=== PATIENT | male | born 1990 | race Caucasian/White ===

== ENCOUNTER 2022-06-22 11:26 | Emergency (ER) | payer OTHER, SELFPAY ==
[2022-06-22 11:39] VITALS: BP 122/83; PULSE 94; RESP 16; TEMP 36.7; O2SAT 98
--- NOTE | 2022-06-22 12:01 | ED.URI ---
HPI - URI/Sore Throat General Chief Complaint: Upper Respiratory Infection Stated Complaint: Sore throat, Ear pain, headache History of Present Illness HPI Narrative: PATIENT PRESENTS REQUESTING A WORK NOTE STATES THAT HE MISSED WORK TODAY DUE TO AN EARACHE. NO FEVER NO COUGH SLIGHT RUNNY NOSE NO DRAINAGE FROM THE EAR. Related Data Allergies Allergy/AdvReac Type Severity Reaction Status Date / Time No Known Allergies Allergy Unverified 08/02/18 19:35 Review of Systems Review of Systems: CONSTITUTIONAL: DENIES CHILLS, OR SWEATS. REPORTS FEVER AND GENERALIZED BODY ACHES EYES: DENIES VISUAL CHANGES, REDNESS, OR DISCHARGE. ENT: DENIES OTALGIA. REPORTS NASAL CONGESTION RUNNY NOSE AND SORE THROAT CARDIOVASCULAR: DENIES CHEST PAIN, PALPITATIONS, OR EDEMA. RESPIRATORY: DENIES DYSPNEA. REPORTS OCCASIONAL COUGH GASTROINTESTINAL: DENIES ABDOMINAL PAIN, NAUSEA, VOMITING, OR DIARRHEA. GENITOURINARY: DENIES DYSURIA OR HEMATURIA. SKIN: DENIES RASH OR ITCHING. MUSCULOSKELETAL: DENIES BACK PAIN, JOINT PAIN, OR MYALGIA. REPORTS GENERALIZED BODY ACHES NEUROLOGIC: DENIES HEADACHE, NUMBNESS, OR WEAKNESS. PSYCHIATRIC: DENIES ANXIETY OR DEPRESSION. PMFSH Comments AT TIME OF SIGNATURE, AGREE WITH NURSING PAST MEDICAL, SURGICAL, SOCIAL AND FAMILY HISTORY. THERE IS NO RELEVANT FAMILY HISTORY PERTINENT TO THE PRESENTING COMPLAINT Exam Narrative: GENERAL: WELL-APPEARING, WELL-NOURISHED, AND IN NO ACUTE DISTRESS. HEAD: NORMOCEPHALIC, ATRAUMATIC. EYES: PERRLA AND EOMI. ENT: NARES CLEAR, NO RHINORRHEA OR EPISTAXIS. MUCOUS MEMBRANES MOIST. NECK: SUPPLE. CHEST: CLEAR TO AUSCULTATION. NO RESPIRATORY DISTRESS. HEART: REGULAR RATE AND RHYTHM. NO MURMUR HEARD. NORMAL PERIPHERAL PULSES. ABDOMEN: SOFT, NONTENDER, NONDISTENDED, NORMAL ACTIVE BOWEL SOUNDS. EXTREMITIES: NORMAL RANGE OF MOTION. NO EDEMA. SKIN: WARM, DRY, NO RASH. NEURO: NO FOCAL DEFICITS. ALERT AND ORIENTED X3. [place] COM[place] SCALE EYE OPENING: SPONTANEOUS 4 [place] COM[place] SCALE MOTOR: OBEYS COMMANDS 6 [place] COM[place] SCALE VERBAL: ORIENTED 5 [place] COM[place] SCALE TOTAL 15 Course Course Level of Care: Express Care Visit Vital Signs Vital signs: Vital Signs Temperature 36.7 C 06/22/22 11:39 Pulse Rate 94 06/22/22 11:39 Respiratory Rate 16 06/22/22 11:39 Blood Pressure 122/83 06/22/22 11:39 Pulse Oximetry 98 06/22/22 11:39 Oxygen Delivery Room Air 06/22/22 11:39 Temperature 36.7 C 06/22/22 11:39 Pulse Rate 94 06/22/22 11:39 Respiratory Rate 16 06/22/22 11:39 Blood Pressure 122/83 06/22/22 11:39 Pulse Oximetry 98 06/22/22 11:39 Oxygen Delivery Room Air 06/22/22 11:39 MDM - URI/Sore Throat Differential Diagnosis Differential diagnosis: Likely upper respiratory infection, croup, otitis media, sinusitis, viral infection, bronchitis, influenza and pharyngitis Discharge Plan Discharge Clinical Impression: Upper respiratory infection Patient Disposition: Home, Self-Care Condition: Stable Instructions: Upper Respiratory Infection (DC) Additional Instructions: TAKE MEDICATIONS PRESCRIBED. RETURN FOR WORSENING SIGNS OR SYMPTOMS RETURN IF FACIAL PAIN INCREASES, FEVER, WORSENING SYMPTOMS, SHORTNESS OF BREATH, CHEST PAIN, PRODUCTIVE COUGH OR DIFFICULTY SWALLOWING) AND AGREES WITH THE PLAN. CONGESTION - FLONASE AM AND PM FOR CHRONIC SINUS CONGESTION OR PROLONGED SYMPTOMS OF SINUSITIS (TAKES SEVERAL DAYS TO WORK). ONE TO THREE TIMES A DAY OF IRRIGATION OF SINUS WITH SALINE SPRAY, OCEAN NASAL SPRAY OR OSWALD POT. FLUIDS. IF YOU DON'T HAVE HYPERTENSION-AFRIN NASAL SPRAY WITH A 3 DAY LIMIT FOR IMMEDIATE RELIEF OF SINUS CONGESTION. FOR RUNNY NOSE: DO OVER THE COUNTER ANTIHISTAMINE (CLARITIN, BENADRYL, ZYRTEC) FOR SNEEZING, RUNNY NOSE. ALLERGIES. SUDAFED OR DECONGESTANT CAN ALSO BE USED, UNLESS YOU HAVE ELEVATED BLOOD PRESSURE, NURSING OR . PINEAPPLE JUICE TO HELP THIN MUCUS P
== END 2022-06-22 12:09 | disposition home or self-care (01) ==
PROVIDERS: Emergency Provider Nurse Practitioner Family; PCP Family Medicine
DX: J06.9 Acute upper respiratory infection, unspecified (principal)
CPT/HCPCS: 99203; G0463

== ENCOUNTER 2023-06-02 12:52 | Emergency (ER) | payer OTHER, SELFPAY ==
[2023-06-02 13:02] VITALS: BP 131/82; PULSE 84; RESP 16; TEMP 36.9; O2SAT 99
--- NOTE | 2023-06-02 14:20 | ED.NAVMDI ---
HPI - Nausea/Vomiting/Diarrhea General Chief complaint: Nausea/Vomiting/Diarrhea Stated complaint: nausea/diarrhea Time Seen by Provider: 06/02/23 14:10 Source: patient, family, RN notes reviewed and old records reviewed Mode of arrival: ambulatory Limitations: no limitations History of Present Illness HPI Narrative: 32-year-old male accompanied presents to Express Care with complaints of nausea vomiting and diarrhea starting at 0200 today. Patient reports that he does have a little cough and some runny nose denies any known fevers. Patient reports that he did go to a birthday democrat at [place] yesterday but no one else in family is ill. Patient has not taken any OTC medications for his symptoms.Patient denies any acute abdominal pain MD elicited complaint: nausea, vomiting, diarrhea and other (runny nose and little cough.) Onset (ago): day(s) (since early am) Description of vomiting: food contents Description of diarrhea: watery Associated nausea: Yes Associated abdominal pain: No Treatment prior to arrival: none Related Data Allergies Allergy/AdvReac Type Severity Reaction Status Date / Time No Known Allergies Allergy Unverified 08/02/18 19:35 Review of Systems Review of Systems: CONSTITUTIONAL: Denies fever, chills, or sweats. ENT:Reports some rhinorrhea, congestion,no sore throat, or otalgia. CARDIOVASCULAR: Denies chest pain, palpitations, or edema. RESPIRATORY: States some cough denies dyspnea. GASTROINTESTINAL: Reports no abdominal pain,positive for nausea, vomiting, diarrhea. GENITOURINARY: Denies dysuria or hematuria. SKIN: Denies rash or itching. MUSCULOSKELETAL: Denies back pain, joint pain, or myalgia. NEUROLOGIC: Denies headache, numbness, or weakness. All systems reviewed & are unremarkable except as noted in HPI and below PMFSH Past Medical History Medical History (Updated 06/03/23 @ 13:54 by Elyssa Granados NP) ADHD (attention deficit hyperactivity disorder) Asthma as child Social History Social History (Updated 06/03/23 @ 13:52 by Elyssa Granados NP) Smoking status: Never smoker Alcohol intake: current Alcohol use details: rare social Substance use type: marijuana Living arrangements: with family Gender identity (if verbalized by the patient): Male Comments At time of signature, agree with nursing past medical, surgical, social and family history. There is no relevant family history pertinent to the presenting complaint Exam Narrative: GENERAL: Well-appearing, well-nourished, and in no acute distress. HEAD: Normocephalic, atraumatic. EYES: PERRLA, conjunctivae clear, and EOMI. ENT: Nares clear. Mucous membranes moist. Oropharynx without edema, erythema, or lesions. Tonsils not enlarged and without exudate. NECK: Supple. No lymphadenopathy CHEST: Speaks in full sentences. No respiratory distress,SAO2 99% on room air. HEART: Regular rate and rhythm. ABDOMEN: Soft, flat, nondistended. No guarding, rebound tenderness, or rigid. No pulsatilla masses. Bowel sounds present in all four quadrants. No organomegaly. Negative Diop?s sign. No periumbilical tenderness. No Supra public tenderness or distension. Good femoral pulses bilaterally. No hernia noted. No scars or surface trauma. No McBurney point tenderness, nausea and vomiting and diarrhea reported. SKIN: Warm, dry, no rash. NEURO:? Alert and oriented x3. PSYCH: Normal mood and affect Course Course Emergency Course: Patient is aware of diagnosis, understands and agrees to treatment plan.? Anticipatory guidance given.? Patient agrees to follow-up as directed and is aware of reasons to seek care at the emergency department. Portions of this record may have been created with voice recognition software Level of Care: Express Care Visit Vital Signs Vital signs: Vital Signs Temperature 36.9 C 06/02/23 13:02 Pulse Rate 84 06/02/23 13:02 Respiratory Rate 16 06/02/23 13:02 Blood Pressur
== END 2023-06-02 14:46 | disposition home or self-care (01) ==
PROVIDERS: Emergency Provider Registered Nurse; PCP Family Medicine
DX: K52.9 Noninfective gastroenteritis and colitis, unspecified (principal); Z20.822 Contact with and (suspected) exposure to COVID-19
CPT/HCPCS: 87426; 87804; 99213; G0463

== ENCOUNTER 2023-07-01 15:17 | Emergency (ER) | payer OTHER, SELFPAY ==
--- NOTE | ~2023-07-01 | XR_ITS ---
EXAMINATION: XR foot RT 2V DATE: 07/01/2023 16:18 INDICATION: Stepped on metal. TECHNIQUE: 4 views of right foot were obtained. COMPARISON: None. FINDINGS: Bone alignment is normal. No fracture. There is mild osteoarthritis of first metatarsophala ngeal joint. IMPRESSION: 1. No radiopaque foreign body. Reviewed, dictated and finalized at location E.
--- NOTE | 2023-07-01 15:29 | ED.LOWEXIN ---
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 Patient reports that it went through his shoe and punctured his right plantar foot with initially a lot of bleeding which has stopped now. He reports concern that he may have piece of metal in foot. Minimal small puncture wound noted distal plantar foot 0.2cm X 0.2cm. MD complaint: foot injury (puncture) Injury: Right: foot (plantar aspect puncture) Type of Injury: puncture wound Place: street/outdoors Severity: mild Severity scale (1-10): 1 Context: other (puncture) Treatments prior to arrival: other (none) Related Data Allergies Allergy/AdvReac Type Severity Reaction Status Date / Time No Known Allergies Allergy Unverified 07/01/23 15:45 Review of Systems Review of Systems: CONSTITUTIONAL: Denies fever, chills, or sweats. CARDIOVASCULAR: Denies chest pain, palpitations, or edema. RESPIRATORY: Denies cough or dyspnea. GASTROINTESTINAL: Denies abdominal pain, nausea, vomiting SKIN: Reports puncture wound to the plantar aspect of his right foot MUSCULOSKELETAL: Denies myalgia. NEUROLOGIC: Denies headache, numbness All systems reviewed & are unremarkable except as noted in HPI and below PMFSH Past Medical History Medical History ADHD (attention deficit hyperactivity disorder) Asthma as child Social History Social History (Updated 06/03/23 @ 13:52 by Elyssa Granados NP) Smoking status: Never smoker Alcohol intake: current Alcohol use details: rare social Substance use type: marijuana Living arrangements: with family Gender identity (if verbalized by the patient): Male Comments At time of signature, agree with nursing past medical, surgical, social and family history. There is no relevant family history pertinent to the presenting complaint Exam Narrative: GENERAL: Well-appearing, well-nourished, and in no acute distress. HEAD: Normocephalic, atraumatic. EYES: PERRLA and EOMI. ENT: Nares clear, no rhinorrhea or epistaxis. Mucous membranes moist. NECK: Supple.no lymphadenopathy CHEST: Clear to auscultation. No respiratory distress. SAO2 98% on room air HEART: Regular rate and rhythm. No murmur heard. Normal peripheral pulses. ABDOMEN: Soft, nontender, nondistended, normal active bowel sounds. EXTREMITIES: Normal range of motion. No edema. SKIN: Warm, dry. Small puncture wound to the distal plantar area of right foot with no present drainage noted.mild tenderness of distal plantar area of foot where puncture noted 0.2cm X 0.2cm wound no bleeding noted. Right foot has strong pedal pulse. Foot soaked in warm water with antibacterial soap NEURO: No focal deficits. Alert and oriented x3. Course Course Emergency Course: Patient is aware of diagnosis, understands and agrees to treatment plan. Anticipatory guidance given. Patient agrees to follow-up as directed and is aware of reasons to seek care at the emergency department. Portions of this record may have been created with voice recognition software Level of Care: Express Care Visit Vital Signs Vital signs: Vital Signs Temperature 36.9 C 07/01/23 15:45 Pulse Rate 67 07/01/23 15:45 Respiratory Rate 18 07/01/23 15:45 Blood Pressure 130/81 07/01/23 15:45 Pulse Oximetry 98 07/01/23 15:45 Temperature 36.9 C 07/01/23 15:45 Pulse Rate 67 07/01/23 15:45 Respiratory Rate 18 07/01/23 15:45 Blood Pressure 130/81 07/01/23 15:45 Pulse Oximetry 98 07/01/23 15:45
[2023-07-01 15:45] VITALS: BP 130/81; PULSE 67; RESP 18; TEMP 36.9; O2SAT 98
== END 2023-07-01 17:35 | disposition home or self-care (01) ==
PROVIDERS: Emergency Provider Registered Nurse; PCP Family Medicine
DX: S91.331A Puncture wound without foreign body, right foot, initial encounter (principal); W22.8XXA Striking against or struck by other objects, initial encounter; Y99.0 Civilian activity done for income or pay; F12.90 Cannabis use, unspecified, uncomplicated
CPT/HCPCS: 73620; 99213; G0463

== ENCOUNTER 2023-10-30 09:23 | Emergency (ER) | payer OTHER, SELFPAY ==
--- NOTE | 2023-10-30 09:28 | ED.GENADULT ---
HPI - General Adult General Chief complaint: Nausea/Vomiting/Diarrhea Stated complaint: nausea/fever Time Seen by Provider: 10/30/23 09:28 Source: patient, RN notes reviewed and old records reviewed Mode of arrival: ambulatory Limitations: no limitations History of Present Illness HPI narrative: 33-year-old male to Express Care for complaint of fever, nausea, nasal congestion, headache that began yesterday. Patient also stating that his ears sound like he's under water. Patient endorses temperature up to 100.8 at home. Patient endorses that significant other has been sick for the past 4-5 days and he believes that he contracted his symptoms from her. Patient denies vomiting, diarrhea constipation, urinary changes flank pain, back pain, dizziness, shortness of breath, chest pain. Patient has attempted to treat at home with [id number] cold and flu medications with some relief. Patient able to tolerate fluids by mouth. Respirations even and nonlabored. Patient able to speak in complete sentences without difficulty. Patient requesting work note. Patient in no acute distress. Related Data Allergies Allergy/AdvReac Type Severity Reaction Status Date / Time No Known Allergies Allergy Unverified 10/30/23 09:29 Review of Systems Review of Systems: All systems reviewed & are unremarkable except as noted in HPI and below Constitutional: Constitutional: Reports as per HPI, Reports fever(s) and Reports headache(s) Eyes: Eyes: Reports no additional eye complaints ENT: Reports as per HPI, Reports otalgia ( sounds like I'm under water ) and Reports nasal congestion Cardiovascular: Cardiovascular: Reports no additional cardiovascular complaints, Denies chest pain and Denies dyspnea Respiratory: Respiratory: Reports no additional respiratory complaints, Denies cough and Denies dyspnea Gastrointestinal: Gastrointestinal: Reports as per HPI and Reports nausea Musculoskeletal: Musculoskeletal: Reports no additional musculoskeletal complaints Neurologic: Reports system reviewed and no additional complaints, except as documented Psychiatric: Psychiatric: Reports no additional psychiatric complaints PMFSH Past Medical History Medical History ADHD (attention deficit hyperactivity disorder) Asthma as child Social History Social History Smoking status: Never smoker Alcohol intake: current Alcohol use details: rare social Substance use type: marijuana Living arrangements: with family Gender identity (if verbalized by the patient): Male Comments At the time of my signature, I reviewed and agree with the nursing past medical, surgical, social, and family history. There is no relevant family history pertinent to the patient complaint. Exam Const: General: cooperative, no acute distress, alert, ill appearing acutely, tired appearing, uncomfortable and well nourished Nutritional Appearance: well nourished Orientation/consciousness: patient oriented x3 Limitations: no limitations HENMT: Head: normal to inspection Ears: external ears normal and TM abnormal erythematous on the right, with fluid behind the TM on the right and with loss of landmarks on the right Face/Nose/Sinus: Normal external nose present, Normal nares present, normal facial exam, No erythema and No edema Face and sinus: normal facial exam, no erythema and no edema Mouth: Yes Normal oral and palatal mucosa present Throat: postnasal drainage Eyes: General: appearance normal, both eyes and all related structures Neck: Neck: normal visual inspection, full ROM and no meningeal signs Lymphatic: no lymphadenopathy noted and no lymphedema noted Chest: Chest palpation & inspection: normal inspection of the chest Resp: Effort & Inspection: normal respiratory effort and able to speak in complete sentences Auscultation: clear to ausculta
[2023-10-30 09:30] VITALS: BP 129/78; PULSE 61; RESP 15; TEMP 36.8; O2SAT 99
== END 2023-10-30 09:55 | disposition home or self-care (01) ==
PROVIDERS: Emergency Provider Nurse Practitioner Family
DX: B34.9 Viral infection, unspecified (principal); H66.91 Otitis media, unspecified, right ear; F12.90 Cannabis use, unspecified, uncomplicated
CPT/HCPCS: 99213; G0463

== ENCOUNTER 2024-02-07 13:22 | Emergency (ER) | payer OTHER, SELFPAY ==
[2024-02-07 13:34] VITALS: BP 147/87; PULSE 70; RESP 20; TEMP 36.8; O2SAT 99
--- NOTE | 2024-02-07 13:35 | ED.DENTAL ---
HPI - Dental/Oral General Chief complaint: Dental/Oral Stated complaint: Toothache History of Present Illness HPI Narrative: Dental HPI NO FEVER. NO JAW SWELLING. NO NECK SWELLING. NO LIMITATION WITH SPEAKING OR SWALLOWING. HAS A HISTORY OF DENTAL CARIES. HAS NOT SEEN A DENTIST RECENTLY. Related Data Allergies Allergy/AdvReac Type Severity Reaction Status Date / Time No Known Allergies Allergy Unverified 10/30/23 09:29 Review of Systems Review of Systems: CONSTITUTIONAL: Denies fever, chills, or sweats. EYES: Denies visual changes, redness, or discharge. ENT: Denies rhinorrhea, congestion, sore throat, or otalgia.CONSTITUTIONAL: Denies fever, chills, or sweats. EYES: Denies visual changes, redness, or discharge. ENT: Denies rhinorrhea, congestion, sore throat, or otalgia. CARDIOVASCULAR: Denies chest pain, palpitations, or edema. RESPIRATORY: Denies cough or dyspnea. GASTROINTESTINAL: Denies abdominal pain, nausea, vomiting, or diarrhea. GENITOURINARY: Denies dysuria or hematuria. SKIN: Denies rash or itching. MUSCULOSKELETAL: Denies back pain, joint pain, or myalgia. NEUROLOGIC: Denies headache, numbness, or weakness. PSYCHIATRIC: Denies anxiety or depression. CARDIOVASCULAR: Denies chest pain, palpitations, or edema. RESPIRATORY: Denies cough or dyspnea. GASTROINTESTINAL: Denies abdominal pain, nausea, vomiting, or diarrhea. GENITOURINARY: Denies dysuria or hematuria. SKIN: Denies rash or itching. MUSCULOSKELETAL: Denies back pain, joint pain, or myalgia. NEUROLOGIC: Denies headache, numbness, or weakness. PSYCHIATRIC: Denies anxiety or depression. ON LICENSE OF [facility] Past Medical History Medical History ADHD (attention deficit hyperactivity disorder) Asthma as child Social History Social History Smoking status: Never smoker Alcohol intake: current Alcohol use details: rare social Substance use type: marijuana Living arrangements: with family Gender identity (if verbalized by the patient): Male Comments At time of signature, agree with nursing past medical, surgical, social and family history. There is no relevant family history pertinent to the presenting complaint Exam Narrative: GENERAL: Well-appearing, well-nourished, and in no acute distress. HEAD: Normocephalic, atraumatic. EYES: PERRLA and EOMI. ENT: Nares clear, no rhinorrhea or epistaxis. Mucous membranes moist. NO LESTER APICAL SWELLING, TOOTH TENDER TO PALPATION. NO FACIAL SWELLING. NO TRISMUS. ABLE TO OPEN MOUTH FULLY. NO NECK SWELLING OR ROSALBA'S ANGINA. NO ABSCESS TO BE DRAINED. no drooling, trismus, facial asymmetry or significant neck swellingtooth # 1 NECK: Supple. CHEST: Clear to auscultation. No respiratory distress. HEART: Regular rate and rhythm. No murmur heard. Normal peripheral pulses. ABDOMEN: Soft, nontender, nondistended, normal active bowel sounds. EXTREMITIES: Normal range of motion. No edema. SKIN: Warm, dry, no rash. NEURO: No focal deficits. Alert and oriented x3. [place] Coma Scale Eye Opening: Spontaneous 4 [place] Coma Scale Motor: Obeys Commands 6 [place] Coma Scale Verbal: Oriented 5 [place] Coma Scale Total 15 Course Course Level of Care: Express Care Visit Vital Signs Vital signs: Vital Signs Temperature 36.8 C 02/07/24 13:34 Pulse Rate 70 02/07/24 13:34 Respiratory Rate 20 02/07/24 13:34 Blood Pressure 147/87 H 02/07/24 13:34 Pulse Oximetry 99 02/07/24 13:34 Oxygen Delivery Room Air 02/07/24 13:34 Temperature 36.8 C 02/07/24 13:34 Pulse Rate 70 02/07/24 13:34 Respiratory Rate 20 02/07/24 13:34 Blood Pressure 147/87 H 02/07/24 13:34 Pulse Oximetry 99 02/07/24 13:34 Oxygen Delivery Room Air 02/07/24 13:34 Please REA schedule a followup visit with your personal physician for further evaluation and treatment. Including recheck and discussion of your blood pressure. If your symptoms persist, change or worsen significantly before you can contact your personal physician then please, without delay, go to the emergency department for further evaluation Discharge Plan Discharge Clinical Impression: Dental caries, Toothache, Dental abscess Patient Disposition: Home, Self-Care Condition: Stable Instructions: Antibiotic Form, Dental Abscess (ED), Mouth Care (ED) Additional Instructions: Dental discharge Avoid temperature extremes May apply heat or ice to the face Gentle brushing and flossing Antibiotic as directed Tylenol for lesser pain Use ibuprofen regularly Use the medication as provided for severe pain--caution each tablet contains 325 mg of Tylenol--the maximum dose of Tylenol is 4000 mg in 24 hours. This medication may cause constipation consider starting a laxative at this time Follow-up with the dentist as soon as possible--see the list provided -If you have any worsening of symptoms or any other concerns please go to the ED immediately. Prescriptions: New amoxicillin 500 mg capsule 1,000 mg PO Q12H 7 Days Qty: 28 0RF Follow-up/Referrals: PHYSICIAN,[employer]ER [Primary Care Provider] - Stand Alone Forms: Work/School Release IP
== END 2024-02-07 13:43 | disposition home or self-care (01) ==
PROVIDERS: Emergency Provider Nurse Practitioner Family
DX: K02.9 Dental caries, unspecified (principal); K04.7 Periapical abscess without sinus; F12.90 Cannabis use, unspecified, uncomplicated
CPT/HCPCS: 99213; G0463

== ENCOUNTER 2024-05-27 09:14 | Emergency (ER) | payer OTHER, SELFPAY ==
--- NOTE | 2024-05-27 09:16 | ED.GENADULT ---
HPI - General Adult General Chief complaint: Epistaxis Stated complaint: nose bleeds Time Seen by Provider: 05/27/24 09:30 Source: patient, RN notes reviewed and old records reviewed Mode of arrival: ambulatory Limitations: no limitations History of Present Illness HPI narrative: 33-year-old male presents to the [facility] with concerns that he has had a bloody nose for the last 3 days. States they last approximately 10 minutes. 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 Had to cable puller due to a bloody nose yesterday. His employer your request that he be seen for the bloody noses and get a return to work note. Dry blood noted to the left near otherwise no acute findings noted on exam Related Data Allergies Allergy/AdvReac Type Severity Reaction Status Date / Time No Known Allergies Allergy Unverified 10/30/23 09:29 Review of Systems Review of Systems: All systems reviewed & are unremarkable except as noted in HPI and below Constitutional: Constitutional: Reports no additional constitutional complaints ENT: Reports as per HPI Cardiovascular: Cardiovascular: Reports no additional cardiovascular complaints, Denies chest pain and Denies dyspnea Respiratory: Respiratory: Reports no additional respiratory complaints, Denies chest congestion, Denies cough and Denies dyspnea Musculoskeletal: Musculoskeletal: Reports no additional musculoskeletal complaints Integumentary/Breasts: Skin/Breast: Reports system reviewed and no additional complaints, except as docu PMFSH Past Medical History Medical History ADHD (attention deficit hyperactivity disorder) Asthma as child Social History Social History Smoking status: Never smoker Alcohol intake: current Alcohol use details: rare social Substance use type: marijuana Living arrangements: with family Gender identity (if verbalized by the patient): Male Comments At the time of my signature, I reviewed and agree with the nursing past medical, surgical, social, and family history. There is no relevant family history pertinent to the patient complaint. Exam Const: General: cooperative, healthy appearing, comfortable, no acute distress, well developed, alert and well nourished Nutritional Appearance: well nourished Orientation/consciousness: patient oriented x3 Limitations: no limitations HENMT: Head: normal to inspection Ears: hearing grossly normal bilaterally, external ears normal, TM's normal bilaterally, mastoids normal, no periauricular adenopathy and Abnormal EAC present Face/Nose/Sinus: Normal external nose present, sinuses nontender, face symmetric and Other nasal findings present (Dry blood noted left Cat, no edema, increased erythema.) Face and sinus: face symmetric Mouth: Yes Normal oral and palatal mucosa present, Yes lip normal, Yes tongue normal and Yes moist mucous membranes Throat: posterior oropharynx normal, uvula midline and no uvular edema Eyes: General: appearance normal, both eyes and all related structures Alignment and Position: alignment normal Neck: Neck: normal visual inspection, full ROM, no lymphadenopathy and no meningeal signs Chest: Chest palpation & inspection: normal inspection of the chest Resp: Effort & Inspection: normal respiratory effort and able to speak in complete sentences Auscultation: clear to auscultation bilaterally, no crackles, no rales, no rhonchi and no wheezes Cardio: Rate: regular rate Skin: General skin exam: normal color and no rashes or lesions noted Neuro: General: patient oriented x3, gait normal, moves all extremities and no meningeal signs Cognition (Neuro): normal cognition Speech: normal speech Gait exam (Neuro): Normal gait present Extrem: General: normal to inspection, full ROM, capillary refill normal and normal gait Psych: Appearance: grossly normal and well kempt Mental Status: mental status grossly normal Speech and movement: Normal speech and movement present and Clear speech present Affect: normal affect Attitude: cooperative Course Course Level of Care: Express Care Visit Vital Signs Vital signs: Vital Signs Temperature 97.9 F 05/27/24 09:20 Pulse Rate 84 05/27/24 09:20 Respiratory Rate 20 05/27/24 09:20 Blood Pressure 141/77 H 05/27/24 09:20 Pulse Oximetry 98 05/27/24 09:20 Oxygen Delivery Room Air 05/27/24 09:20 Temperature 97.9 F 05/27/24 09:20 Pulse Rate 84 05/27/24 09:20 Respiratory Rate 20 05/27/24 09:20 Blood Pressure 141/77 H 05/27/24 09:20 Pulse Oximetry 98 05/27/24 09:20 Oxygen Delivery Room Air 05/27/24 09:20 Reviewed Medical Decision Making MDM Narrative Medical decision making narrative: Patient sitting comfortably in exam room. Nontoxic, vitals stable. Patient in no acute distress Patient presents for concerns for a bloody nose the last 3 days that only lasts 10 minutes. States he hold pressure and it stops. No acute findings other than dried blood noted to the left Cat. Discussed jmri-epu-sxdhuoh treatments, home treatment. Patient verbalized understanding. List of primary care providers given. Patient appropriate for outpatient treatment and follow-up Discharge instructions reviewed with patient, as well as provided in writing per nursing staff. The instructions also include specific and strict return/GO TO THE ER as well as f/u information. All questions have been answered, and the patient deny any further questions with discharge and discharge plan. Some parts of this dictation were generated by voice recognition software and may contain typographical and/or grammatical inaccuracies. Medical Records Medical records reviewed: Yes I reviewed the external patient's medical records. Vital Signs Vital Signs: Vital Signs Temperature 97.9 F 05/27/24 09:20 Pulse Rate 84 05/27/24 09:20 Respiratory Rate 20 05/27/24 09:20 Blood Pressure 141/77 H 05/27/24 09:20 Pulse Oximetry 98 05/27/24 09:20 Oxygen Delivery Room Air 05/27/24 09:20 Temperature 97.9 F 05/27/24 09:20 Pulse Rate 84 05/27/24 09:20 Respiratory Rate 20 05/27/24 09:20 Blood Pressure 141/77 H 05/27/24 09:20 Pulse Oximetry 98 05/27/24 09:20 Oxygen Delivery Room Air 05/27/24 09:20 Reviewed Lab Data Lab results reviewed: Yes I reviewed the patient's lab results. Labs: Reviewed Critical Care Time Critical Care Time Critical Care Time: No Discharge Plan Discharge Clinical Impression: Epistaxis Patient Disposition: Home, Self-Care Condition: Stable Instructions: Nosebleed (ED) Additional Instructions: using saline spray or ocean spray can help moisturize the nasal passage. Use a humidifier at bedside especially at night. Follow-up with primary care provider a list of [facility] has been given when you have a bloody nose be sure to pinch the bridge of your nose, hold for 20 minutes, lean forward. If it it does not stop when you hold pressure constantly for 20 minutes please proceed to the emergency room for further evaluation Patient Language: Palauan Follow-up/Referrals: PHYSICIAN,ANALOG DEVICE DESIGNER [Primary Care Provider] - Stand Alone Forms: Work/School Release IP Time of Disposition: 09:45
[2024-05-27 09:20] VITALS: BP 141/77; PULSE 84; RESP 20; TEMP 36.6; O2SAT 98
--- OUTSIDE RECORDS SUMMARY | 2024-05-27 10:15 | XMS_ITS | Encounter Summary ---
Author Organization [facility] Address [address] [facility] [place] [address] Phone Care Team Providers Care Home Companion Name Role Phone Attila Fields MD Primary Care Provider [phone] Reason for Visit * Reason Comments Medication Refill Encounter Details Date Type Department Care Team (Late st Contact Info) Description 10/13/2020 Refill [facility] - Family Medicine [facility] [address] [place] [address] Attila Fields MD [address] [place] [address] Medication Refill Social History Tobacco Use Types Packs/Day Years Used Date Smoking Tobacco: Never Smokeless Tobacco: Never Alcohol Use Standard Drinks/Week Comments No 0 (1 standard drink = 0.6 oz pur e alcohol) PHQ-2 Answer Date Recorded PHQ-2 Score 0 11/19/2018 Sexually Active Control Partners Comments Yes Female Sex and Gender Information Value Date Recorded Sex Assigned at Not on file Legal Sex Male 8:12 AM CDT Gender Identity Not on file Sexual Orientation Not on file COVID-19 Exposure Response Date Recorded In the last month, have you been in contact with someone who was confirmed or suspected to have Coronavirus / COVID-19? No / Unsure 09/20/2020 8:14 AM CDT documented as of this encounter Miscellaneous Notes * Telephone Encounter - Sara Larson RN - 10/13/2020 11:45 AM CDT Please confirm new SIG based off last Rx Per nursing clinical judgement, provider to review and approve the medication(s) order(s) if appropriate. Requested Prescriptions Pending Prescriptions Disp Refills topiramate (TOPAMAX) 25 MG Tablet [Pharmacy Med Name: TOPIRAMATE 25 MG TABLET] 120 Tablet 1 Sig: Take 2 Tablets by mouth 2 times daily. 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 Showing recent visits within past 460 days with a meds authorizing provider and meeting all other requirements Future Appointments No visits were found meeting these conditions. 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
--- OUTSIDE RECORDS SUMMARY | 2024-05-27 10:15 | XMS_ITS ---
Author Organization [facility] Address [address] [place] [address] Phone Care Team Providers Care Drawer Liner Name Role Phone Unavailable Primary Care Provider Unavailnelida e [facility] Status:Enrolled (Active) Start date:04/14/2024 Enrollment date:04/14/2024 Related social drivers of health:Intimate Partner Violence, Social Connections, Alcohol Use, Financial Resource Strain, Stress, Physical Activity, Food Insecurity, Transportation Needs, Housing Stability, Utilities Continued Care and Services Coordination
--- OUTSIDE RECORDS SUMMARY | 2024-05-27 10:15 | XMS_ITS | Clinical Summary ---
Author Organization [facility] Address [address] [place] [address] Care Team Providers Care Java Web Architect Name Role Phone Attila Fields MD Primary Care Provider [phone] Allergies No known active allergies Medications promethazine-DM (PROMETHAZINE-DM) 1.25-3 mg/mL syrup Take 5 mL by mouth 4 (four) times a day as needed for cough (And runny nose) Collaborating physician Sacha Conti MD 118 mL 022 Active Additional Information Patient not taking.Reported on 10/02/2022 naproxen (NAPROSYN) 375 mg tablet Take 1 tablet (375 mg total) by mouth 2 (two) times a day with meals P.r.n. pain and/ or fever. Collaborating physician Sacha Conti MD 20 tablet 022 Active Additional Information Patient not taking.Reported on 10/02/2022 ondansetron ODT (ZOFRAN-ODT) 4 mg disintegrating tabletIndications :Gastroenteritis Take 1 tablet (4 mg total) by mouth every 8 (eight) hours as needed for nausea or vomiting 12 tablet 023 Active Additional Information Patient not taking.Reported on 12/20/2022 gabapentin (NEURONTIN) 300 mg capsule Take 1 capsule (300 mg total) by mouth nightly 30 capsule 2 021 2020 Discontinued topiramate (TOPAMAX) 25 mg tablet Take 2 tablets by mouth 2 (two) times a day 2020 Discontinued Active Problems Problem Noted Date Diagnosed Date Suspected COVID-19 virus infection 03/20/2021 s/p L4-S1 ALIF on 05/17, L4-S1 PSI on 05/[address] Rai gill 05/18/2019 Other spondylosis with radiculopathy, lumbar reg ion 04/07/2019 Recurrent epistaxis 02/24/2019 Overview (04/07/2019): left sided Spondylolisthesis at L5-S1 level 06/29/2018 Surgical History Surgery Date Site/Laterality Comments NO PAST SURGERIES BACK SURGERY 05/18/2019 Fusion L4-5 L5-S1 Medical History Medical History Date Comments Asthma Spondylosis Motion sickness ADHD (attention deficit hyperactivity disorder) Family History Medical History Relation Name Comments No Known Problems Father No Known Problems Mother Relation Name Status Comments Father Mother Social History Tobacco Use Types Packs/Day Years Used Date Smoking Tobacco: Never Cigarettes Smokeless Tobacco: Never Tobacco Cessation:Counseling Given: Not Answered Alcohol Use Standard Drinks/Week Comments Not Currently 0 (1 standard drink = 0.6 oz pur e alcohol) Social Connection and Isolat ion Panel [NHANES] Answer Date Recorded In a typical week, how many times do you talk on the phone with family, friends, or neighbors? More than three times a week 05/19/2019 How often do you get togethe r with friends or relatives? More than three times a week 05/19/2019 How often do you attend chur ch or gnosticist services? Never 05/19/2019 Do you belong to any clubs o r organizations such as orthodoxy groups, unions, fraternal or athletic groups, or school groups? No 05/19/2019 How often do you attend meet ings of the clubs or organizations you belong to? Never 05/19/2019 Are you , , di vorced, , never , or living with a partner? Living with partner 05/19/2019 Overall Financial Resource Strain (CARDIA) Answe r Date Recorded How hard is it for you to pa y for the very basics like food, housing, medical care, and heating? Not hard at all 05/19/2019 PRAPARE - Transportation Answer Date Re corded In the past 12 months, has l ack of transportation kept you from medical appointments or from getting medications? No 06/2019 In the past 12 months, has l ack of transportation kept you from meetings, work, or from getting things needed for daily living? 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 Gender Identity Not on file Sexual Orientation Not on file Occupation Industry Job Start Date Job End Date works on [id number] Not on file Not on file Not on file Obstetrics History Last Filed Vital Signs Vital Sign Reading Time Taken Comments Blood Pressure 120/76 12/20/2022 11:59 AM CDT Pulse 93 12/20/2022 11:59 AM CDT Temperature 36.6 C (97.8 F) 12/20/2022 11:59 AM CDT Respiratory Rate 16 12/20/2022 11:59 AM CDT Oxygen Saturation 98% 12/20/2022 11:59 AM CDT Inhaled Oxygen Concentration - - Weight 86.2 kg (190 lb) 12/20/2022 11:59 AM CDT Height 172.7 cm (5' 8 ) 12/20/2022 11:59 AM CDT Body Mass Index 28.89 12/20/2022 11:59 AM CDT Plan of Treatment Health Maintenance Due Date Last Done Comments Depression Screening 1992 Hepatitis C Screening 1992 DTaP/Tdap/Td Vaccine (1 - Tdap) 07/06/2003 Varicella Vaccines (1 of 2 - 13+ 2-dose series) 2005 Hepatitis B Screening 2010 Regular Well Visit/Exam 18-64 2010 Covid-19 Vaccine (2 - 2023-2 5 season) 2023 03/31/2021 Influenza Vaccine (#1) 2023 HPV Vaccines Aged Out No longer eligi ble based on patient's age to complete this topic Pneumococcal vaccine <65 Aged Out No longer eligible based on patient's age to complete this topic Medical Devices Implanted Type Area Wire Brusher Device Identifier Shelf Expiration Date Model / Serial / Lot Medtronic Sofamor [id number] [id number] Infuse 14mm 23mm Absorbable Sponge Sterile Water Syringe Needle - [id number] Implanted:Qty: 1 on 05/18/2019 by Gabe Elias MD at [facility] N/A: Spine Lumbar Medtronic Inc 11/14/2020 [id number] / / [id number] Plate Buttress [id number] [place] Bone Spine - [id number] Implanted:Qty: 2 on 05/18/2019 by Gabe Elias MD at [facility] N/A: Spine Lumbar Benjamin Spine [id number] / / Cage Spinal [id number] [place] 20d Alif Strl Ltxfre - [id number] Implanted:Qty: 1 on 05/18/2019 by Gabe Elias MD at [facility] N/A: Spine Lumbar Lamont Spine [id number] 02/22/2024 [id number] / / [id number] Spinal Graft Tech [id number] Kendall Putty Jar Graft 5cc Bone Demineralized Bone Matrix - [id number] - [id number] Implanted:Qty: 1 on 05/18/2019 by Gabe Elias MD at [facility] N/A: Spine Lumbar Spinal Graft Tech 12/27/2021 [id number] / [id number] / [id number] Screw Bone 6mm 26mm Spine - [id number] Implanted:Qty: 2 on 05/18/2019 by Gabe Elias MD at [facility] N/A: Spine Lumbar Benjamin Spine [id number] / / Cage Spinal [id number] [place] 15d Alif Strl Ltxfre - [id number] Implanted:Qty: 1 on 05/18/2019 by Gabe Elias MD at [facility] N/A: Spine Lumbar Lamont Spine [id number] 02/03/2024 [id number] / / [id number] Depuy Synthes Spine [id number] Viper Prime 7mm 45mm Polyaxial Extend Tab Spine Screw Bone - [id number] Implanted:Qty: 2 on 05/20/2019 by Gabe Elias MD at [facility] N/A: Spine Lumbar Depuy Synthes Spine [id number] / / Depuy Synthes Spine [id number] Viper Prime Od7 Mm L40 Mm Polyaxial Extend Tab Spine Screw Bone Nonsterile 5.5 Mm Rupesh - [id number] Implanted:Qty: 4 on 05/20/2019 by Gabe Elias MD at [facility] N/A: Spine Lumbar Depuy Synthes Spine [id number] / / Depuy Spine [id number] 5.5mm 1 Inner Spine Screw Set Titanium Nonsterile Viper - [id number] Implanted:Qty: 6 on 05/20/2019 by Gabe Elias MD at [facility] N/A: Spine Lumbar Depuy Spine [id number] / / Depuy Spine [id number] Viper 2 5.5mm 60mm Prebent Rupesh Spinal Titanium Nonsterile - [id number] Implanted:Qty: 2 on 05/20/2019 by Gabe Elias MD at [facility] N/A: Spine Lumbar Depuy Spine [id number] / / Insurance [facility] Advance Directives For more information, please contact: [phone] * Full Code (Latest Code Status on File) Date Activated Date Inactivated Comments 05/18/2019 12:58 PM 05/22/2019 7:15 PM Care Teams Java Web Architect Relationship Specialty Start Date End Date Attila Fields MD PCP - General Family Medicine 12/11/18
--- OUTSIDE RECORDS SUMMARY | 2024-05-27 10:15 | XMS_ITS | Clinical Summary ---
Author Organization [facility] Address [address] [place] [address] Phone Care Team Providers Care Television Installer Helper Name Role Phone Unavailable Primary Care Provider Unavailabl e Allergies No known active allergies Medications senna (SENNA-LAX) 8.6 MG Tablet Take 1 Tab by mouth 2 times daily. Active tiZANidine (ZANAFLEX) 4 MG Tablet TAKE 1 TABLET BY MOUTH TWO TIMES A DAY NEEDED FOR MUSCLE SPASMS 0 Active albuterol 108 (90 Base) MCG/ACT Aerosol SolutionIndicat ions:Bronchospa sm take 2 Puffs by inhalation every 4 hours as needed for Wheezing or Cough. 8.5 g 1 1 Active SUMAtriptan (IMITREX) 100 MG Tablet Take 1 Tablet by mouth daily as needed for Migraine. Use as directed. May repeat dose in 2 hours if headache recurs. 9 Tablet 3 1 Active topiramate (TOPAMAX) 25 MG Tablet TAKE 2 TABLETS BY MOUTH TWICE A DAY 120 Tablet 1 1 Active Active Problems Problem Noted Date Diagnosed Date Fusion of spine of lumbar region 05/18/2019 Recurrent epistaxis 02/24/2019 Overview (02/24/2019): left sided Lumbar pain 08/25/2018 Migraine without aura and wi thout status migrainosus, not intractable 07/09/2018 Spondylolisthesis at L5-S1 level 06/29/2018 Family History Medical History Relation Name Comments No Known Problems Father No Known Problems Mother Relation Name Status Comments Brother Alive Father Alive Mother Alive Social History Tobacco Use Types Packs/Day Years Used Date Smoking Tobacco: Never Smokeless Tobacco: Never Tobacco Cessation:Counseling Given: Yes Alcohol Use Standard Drinks/Week Comments No 0 (1 standard drink = 0.6 oz pur e alcohol) PHQ-2 Answer Date Recorded PHQ-2 Score 0 11/19/2018 Sexually Active Control Partners Comments Yes Female Sex and Gender Information Value Date Recorded Sex Assigned at Not on file Legal Sex Male 8:12 AM CDT Gender Identity Not on file Sexual Orientation Not on file Last Filed Vital Signs Vital Sign Reading Time Taken Comments Blood Pressure 120/62 09/20/2020 8:21 AM CDT Pulse 72 09/20/2020 8:21 AM CDT Temperature 36.3 C (97.4 F) 09/20/2020 8:21 AM CDT Respiratory Rate 16 09/20/2020 8:21 AM CDT Oxygen Saturation 98% 09/20/2020 8:21 AM CDT Inhaled Oxygen Concentration - - Weight 89.9 kg (198 lb 1.6 oz) 09/20/2020 8:21 A M CDT Height 172.7 cm (5' 8 ) 09/20/2020 8:21 AM CDT Body Mass Index 30.12 09/20/2020 8:21 AM CDT Plan of Treatment Health Maintenance Due Date Last Done Comments Hepatitis C Virus (HCV) Screening 1992 TdaP Immunization 1992 Hepatitis B Immunization (1 of 3 - 19+ 3-dose series) 07/06/2011 Influenza Immunization (#1) 2023 SARS-COV-2 Immunization (3 - 2023-25 season) 2023 04/28/2021, 03/31/2021 Respiratory Syncytial Virus (RSV) Immunization (Adult) (1 - 1-dose 75+ series) 07/06/2067 Meningococcal Immunization (ACWY) Aged Out No longer eligible b ased on patient's age to complete this topic Pneumococcal Immunization Combined Aged Out No longer eligible b ased on patient's age to complete this topic Rotavirus Immunization Aged Out No lo nger eligible based on patient's age to complete this topic Insurance MEDICAID [employer] Advance Directives Documents on File Type Date Recorded Patient Merchandise Supervisor Expl anation Power of Employee Wellness/Fitness Coordinator for Health Care 05/28/2019 4:26 PM POA-HC 05/28/19 * Full Code (Latest Code Status on File) Date Activated Date Inactivated Comments 05/28/2019 6:22 AM
--- OUTSIDE RECORDS SUMMARY | 2024-05-27 10:15 | XMS_ITS | Referral Summary ---
Author Organization [facility] Medical Office Building A Address [address] [place] [address] Care Team Providers Care Environmental Sustainability Manager Name Role Phone Attila Fields MD Primary Care Provider [phone] Allergies No known active allergies Medications promethazine-DM [...] left sided Spondylolisthesis at L5-S1 level 06/29/2018 Social History Tobacco Use Types Packs/Day Years [...] often do you attend chur ch or gnosticism services? 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 Gender Identity Not on file Sexual Orientation Not on file Occupation Industry Job Start Date Job End Date works on [employer] Not on file Not on file Not on file Last Filed Vital Signs [...] 12/20/2022 11:59 AM CDT Plan of Treatment Not on file Medical Devices Implanted Type Area Global Manager Device Identifier Shelf Expiration Date Model / Serial / Lot Medtronic GenoLogicsek [id number] Infuse 14mm 23mm Absorbable Sponge Sterile Water Syringe Needle - [id number] Implanted:Qty: 1 on 05/18/2019 by Gabe Elias MD at [facility] N/A: Spine Lumbar Medtronic Inc 11/14/2020 [id number] / / [id number] Buttress [id number] [place] Bone Spine - [id number] Implanted:Qty: 2 on 05/18/2019 by Gabe Elias MD at [facility] N/A: Spine Lumbar Nikolski Spine [id number] / / Cage Spinal [id number] [place] 20d Alif Strl Ltxfre - [id number] Implanted:Qty: 1 on 05/18/2019 by Gabe Elias MD at [facility] N/A: Spine Lumbar Nikolski Spine [id number] 02/22/2024 [id number] / / [id number] Spinal Graft Tech [id number] Kendall Putty Jar Graft 5cc Bone Demineralized Bone Matrix - [id number] - [id number] Implanted:Qty: 1 on 05/18/2019 by Gabe Elias MD at [facility] N/A: Spine Lumbar Spinal Graft Tech 12/27/2021 [id number] / [id number] / [id number] Screw Bone 6mm 26mm Spine - [id number] Implanted:Qty: 2 on 05/18/2019 by Gabe Elias MD at [facility] N/A: Spine Lumbar Nikolski Spine [id number] / / Cage Spinal [id number] [place] 15d Alif Strl Ltxfre - [id number] Implanted:Qty: 1 on 05/18/2019 by Gabe Elias MD at [facility] N/A: Spine Lumbar Benjamin Spine [id number] 02/03/2024 [id number] / / [id number] Depuy Synthes Spine [id number] Viper Prime 7mm 45mm Polyaxial Extend Tab Spine Screw Bone - [id number] Implanted:Qty: 2 on 05/20/2019 by Gabe Elias MD at [facility] N/A: Spine Lumbar Depuy Synthes Spine [id number] / / Depuy Synthes Spine [id number] Viper Prime Od7 Mm L40 Mm Polyaxial Extend Tab Spine Screw Bone Nonsterile 5.5 Mm Rupesh - [id number] Implanted:Qty: 4 on 05/20/2019 by Gabe Elias MD at [facility] N/A: Spine Lumbar Depuy Synthes Spine [id number] / / Depuy Spine [id number] 5.5mm 1 Inner Spine Screw Set Titanium Nonsterile Viper - [id number] Implanted:Qty: 6 on 05/20/2019 by Gabe Elias MD at [facility] N/A: Spine Lumbar Depuy Spine [id number] / / Depuy Spine [id number] Viper 2 5.5mm 60mm Prebent Rupesh Spinal Titanium Nonsterile - [id number] Implanted:Qty: 2 on 05/20/2019 by Gabe Elias MD at [facility] N/A: Spine Lumbar Depuy Spine [id number] / / Insurance [facility] Advance Directives For more information, please contact: [phone] * Full Code (Latest Code Status on File) Date Activated Date Inactivated Comments 05/18/2019 12:58 PM 05/22/2019 7:15 PM Care Teams Environmental Sustainability Manager Relationship Specialty Start Date End Date Attila Fields MD PCP - General Family Medicine 12/11/18
--- OUTSIDE RECORDS SUMMARY | 2024-05-27 10:15 | XMS_ITS | Encounter Summary ---
Author Organization [facility] Healthcare Address [address] [place] [address] Care Team Providers Care Evaluation Manager Name Role Phone Attila Fields MD Primary Care Provider [phone] Encounter Details Date Type Department Care Team (Late st Contact Info) Description 12/31/2019 Telephone [facility] [address] [place] [address] Maurilio Palomino, RT Social History Tobacco Use Types Packs/Day Years Used Date Smoking Tobacco: Former Cigarettes Smokeless Tobacco: Never Alcohol Use Standard Drinks/Week Comments Not Currently [...] often do you attend chur ch or roman catholic services? 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 Gender Identity Not on file Sexual Orientation Not on file Occupation Industry Job Start Date Job End Date works on [employer] Not on file Not on file Not on file documented as of this encounter Plan of Treatment Not on file documented as of this encounter Visit Diagnoses Not on filedocumented in this encounter Additional Health Concerns Infection Onset Date Last Indicated Resolved Time COVID: Suspected 12/06/2020 12/06/2020 12/06/2020 3:22 PM CDT COVID: Suspected 03/02/2021 03/02/2021 03/02/2021 10:52 AM CUSTOMER GREETER COVID: Suspected 03/02/2021 03/02/2021 03/03/2021 11:35 AM CUSTOMER GREETER Exposure, COVID-19 Comment:Added automatically based on COVID19 lab answers indicating exposure risk 03/14/2021 03/14/2021 03/29/2021 3:[address] COVID: Suspected 03/14/2021 03/14/2021 03/14/2021 2:54 PM CUSTOMER GREETER COVID: Suspected 10/12/2021 10/12/2021 10/12/2021 3:23 PM CDT COVID: Suspected 01/17/2022 01/17/2022 01/17/2022 11:40 AM CDT COVID: Suspected 10/02/2022 10/02/2022 10/02/2022 2:49 PM CDT COVID: Suspected 12/20/2022 12/20/2022 12/20/2022 12:07 PM CDT documented as of this encounter Care Teams Evaluation Manager Relationship Specialty Start Date End Date Attila Fields MD PCP - General Family Medicine 12/11/18 documented as of this encounter
--- OUTSIDE RECORDS SUMMARY | 2024-05-27 10:15 | XMS_ITS | Encounter Summary ---
Author Organization [facility] Address [address] [facility] [place] [address] Phone Care Team Providers Care Engine Cleaner Name Role Phone Attila Fields MD Primary Care Provider [phone] Reason for Visit * Reason Comments Medication Refill Encounter Details Date Type Department Care Team (Late st Contact Info) Description 12/15/2020 Refill [facility] - Family Medicine [facility] [address] [place] [address] Attila Fields MD [address] [place] [address] Medication Refill Social History Tobacco Use Types [...] on file Sexual Orientation Not on file documented as of this encounter Miscellaneous Notes * Telephone Encounter - Diane West RN - 12/15/2020 12:44 PM CDT topiramate (TOPAMAX) 25 MG Tablet 120 Tablet 1 11/16/2020 Refill to soon documented in this encounter Plan of Treatment Not on file documented as of this encounter Visit Diagnoses Not on filedocumented in this encounter Additional Health Concerns Assessment Noted Time PHQ-9 Depression Total Score: 0 03/29/19 20 3:00 PM BOBCAT OPERATOR documented as of this encounter Care Teams Engine Cleaner Relationship Specialty Start Date End Date Attila Fields MD PCP - General Family Medicine 07/09/18 09/21/23 documented as of this encounter
--- OUTSIDE RECORDS SUMMARY | 2024-05-27 10:15 | XMS_ITS | Encounter Summary ---
Author Organization [facility] Healthcare Address [address] [place] [address] Care Team Providers Care Electrician Assistant Name Role Phone Attila Fields MD Primary Care Provider [phone] Encounter Details Date Type Department Care Team (Late st Contact Info) Description 04/20/2020 Telephone [facility] [address] [place] [address] Julia Still, RT Social History Tobacco Use Types Packs/Day [...] often do you attend chur ch or mormonism services? Never 05/19/2019 Do you belong to any clubs o r organizations such as hoahaoism groups, unions, fraternal or athletic groups, or [...] on file Legal Sex Male 7:55 AM HOSIERY MENDER Gender Identity Not on file Sexual Orientation Not on file Occupation Industry Job Start Date Job End Date works on [employer] Not on file Not on file Not on file documented as of this encounter Plan of Treatment Not on file documented as of this encounter Visit Diagnoses Not on filedocumented in this encounter Additional Health Concerns Infection Onset Date Last Indicated Resolved Time COVID: Suspected 12/06/2020 12/06/2020 12/06/2020 3:22 PM CDT COVID: Suspected 03/02/2021 03/02/2021 03/02/2021 10:52 AM HOSIERY MENDER COVID: Suspected 03/02/2021 03/02/2021 03/03/2021 11:35 AM HOSIERY MENDER Exposure, COVID-19 Comment:Added automatically based on COVID19 lab answers indicating exposure risk 03/14/2021 03/14/2021 03/29/2021 3:[address] COVID: Suspected 03/14/2021 03/14/2021 03/14/2021 2:54 PM HOSIERY MENDER COVID: Suspected 10/12/2021 10/12/2021 10/12/2021 3:23 PM CDT COVID: Suspected 01/17/2022 01/17/2022 01/17/2022 11:40 AM CDT COVID: Suspected 10/02/2022 10/02/2022 10/02/2022 2:49 PM CDT COVID: Suspected 12/20/2022 12/20/2022 12/20/2022 12:07 PM CDT documented as of this encounter Care Teams Electrician Assistant Relationship Specialty Start Date End Date Attila Fields MD PCP - General Family Medicine 12/11/18 documented as of this encounter
== END 2024-05-27 09:56 | disposition home or self-care (01) ==
PROVIDERS: Emergency Provider Nurse Practitioner
DX: R04.0 Epistaxis (principal)
CPT/HCPCS: 99211; G0463

== ENCOUNTER 2024-11-03 10:32 | Emergency (ER) | payer OTHER, SELFPAY ==
--- NOTE | 2024-11-03 10:45 | ED_ITS ---
HPI - URI/Sore Throat General Chief Complaint: Upper Respiratory Infection Stated Complaint: sore throat, cough, headache History of Present Illness HPI Narrative: patient is a 34-year-old male, past medical history significant for recurrent bronchitis, presents to the Urgent Care with 24 history of URI symptoms, including nasal congestion, sore scratchy throat and a dry cough. He denies known fevers or chills. He has no known sick contacts. He took a dose of Tylenol this morning with some symptom relief. He states that his inhaler is and is requesting refill. He denies any additional associated symptoms or modifying factors. Related Data Allergies Allergy/AdvReac Type Severity Reaction Status Date / Time No Known Allergies Allergy Verified 11/03/24 10:45 Review of Systems ENT: Reports as per HPI Respiratory: Respiratory: Reports as per [facility] Past Medical History Medical History ADHD (attention deficit hyperactivity disorder) Asthma as child Social History Social History Smoking status: Never smoker Alcohol intake: current Alcohol use details: rare social Substance use type: marijuana Living arrangements: with family Gender identity (if verbalized by the patient): Male Exam Const: General: healthy appearing and no acute distress Nutritional Appearance: well nourished Orientation/consciousness: patient oriented x3 Limitations: no limitations HENMT: Head: normal to inspection Ears: external ears normal, EAC's normal and TM abnormal other ( Tympanosclerosis bilaterally) Face/Nose/Sinus: N ormal external nose present Face and sinus: normal facial exam and sinuses nontender Mouth: Yes Normal oral and palatal mucosa present and Yes lip normal Teeth and gingiva: dentition normal Throat: posterior oropharynx normal Other: uvula midline, mildly injected Eyes: Conjunctivae: conjunctivae normal Pupils: Equal, round and reactive pupils present Neck: Neck: normal visual inspection, no lymphadenopathy and no meningeal signs Resp: Effort & Inspection: normal respiratory effort Auscultation: clear to auscultation bilaterally Cardio: Rate: regular rate Rhythm: regular rhythm Skin: General skin exam: normal color Rashes: no rashes Wounds: no wounds Neuro: General: patient oriented x3, moves all extremities, no meningeal signs, no focal motor deficits and CN's II-XI intact bilaterally Cranial nerves: Yes Nystagmus not present Extrem: General: normal to inspection, no clubbing, cyanosis or edema and no pedal edema Course Course Emergency Course: patient's examination and symptoms are consistent with a viral URI versus seasonal allergies. He does have history of recurrent bronchitis / asthma and is tobacco dependent. Plan to treat with a short steroid course, cough suppressant and will refill his inhaler. He states that his PCP recently moved from a private practice to a director position at a [facility] and he is attempting to find a new provider at this time. He is encouraged to follow up in 7-10 days if symptoms not improving, ER if condition worsens or with any further emergencies Level of Care: Express Care Visit (58524) MDM - URI/Sore Throat MDM Narrative Medical decision making narrative: URI, prednisone daily for 5 days, promethazine DM, albuterol Differential Diagnosis Differential diagnosis: Likely upper respiratory infection, otitis media, sinusitis, viral infection, bronchitis and pharyngitis Discharge Plan Discharge Clinical Impression: Upper respiratory infection Qualifiers: URI type: unspecified viral URI Qualified Code(s): J06.9 - Acute upper respiratory infection, unspecified Patient Disposition: Home Condition: Stable Instructions: Antibiotic Form, Upper Respiratory Infection (ED) Additional Instructions: START AND COMPLETE ORAL STEROIDS DIRECTED. USE COUGH SUPPRESSANT PRESCRIBED, USE CAUTION WHEN DRIVING WHILE TAKING THIS MEDICATION IT MAY CAUSE DROWSINESS. YOU MAY USE THE INHALER FOR RESCUE DIRECTED. SEE YOUR PRIMARY DOCTOR FOR FOLLOW-UP IN 7-10 DAYS IF SYMPTOMS NOT IMPROVING. PROCEED TO THE ER IF YOUR CONDITION WORSENS IN ANY WAY Patient Language: Uruguayan Prescriptions: New prednisone 20 mg tablet 40 mg PO DAILY 5 Days Qty: 10 0RF promethazine-DM 6.25-15 mg/5 mL syrup 5 ml PO Q4-6H PRN (Reason: cough) Qty: 118 0RF albuterol sulfate [Ventolin HFA] 90 mcg/actuation HFA aerosol inhaler 1 inh inhalation QID PRN (Reason: shortness of breath or wheezing) Qty: 8.5 0RF Rx Instructions: MAY SUBSTITUTE TO FOR ANY ALBUTEROL INHALER PREFERRED BY INSURANCE Follow-up/Referrals: PHYSICIAN,SLIP INJECTOR AND APPLICATOR [Primary Care Provider, Internal Medicine] Stand Alone Forms: Work/School Release IP Time of Disposition: 10:56
[2024-11-03 10:49] VITALS: BP 136/79; PULSE 75; RESP 18; TEMP 36.2; O2SAT 99
--- OUTSIDE RECORDS SUMMARY | 2024-11-03 11:03 | XMS_ITS | Clinical Summary ---
Author Organization [facility] Address [address] [place] [address] Phone Care Team Providers Care Appliance Worker Name Role Phone Unavailable Primary Care Provider [...] A M CDT Height 172.7 cm (5' 8) 09/20/2020 8:21 AM CDT Body Mass Index 30.12 09/20/2020 8:21 AM CDT Plan of Treatment Health Maintenance Due Date Last Done Comments Hepatitis C Virus (HCV) Screening 1992 TdaP Immunization 1992 Hepatitis B Immunization (1 of 3 - 19+ 3-dose series) 07/06/2011 Human Papillomavirus (HPV) Immunization (1 - 3-dose SCDM series) 07/06/2019 SARS-COV-2 Immunization (3 - season) 2023 04/28/2021, 03/31/2021 Influenza Immunization (#1) 2024 Respiratory Syncytial Virus (RSV) Immunization (Adult) (1 [...] age to complete this topic Insurance MEDICAID [place] Advance Directives Documents on File Type Date Recorded 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
--- OUTSIDE RECORDS SUMMARY | 2024-11-03 11:03 | XMS_ITS | Encounter Summary ---
Author Organization [facility] Address [address] [place] [address] Phone Care Team Providers Care Coding Support Specialist Name Role Phone Attila Fields MD Primary Care Provider [phone] Reason for Visit * Reason Comments Medication Refill Encounter Details Date Type Department Care Team (Late st Contact Info) Description 10/13/[address] [facility] - Family Medicine [facility] [address] [place] [address] Attila Fields MD [address] [place] [address] Medication Refill Social History Tobacco Use Types [...] Other migraine without status migrainosus, not intractable [facility] - Attila Yates MD 8 months ago Acute non-recurrent frontal sinusitis [facility] - Attila Yates MD 1 year ago Wound infection after surgery [facility] - AlcidesJose Gallegos APN, HYDROLOGIC ENGINEER 1 year ago Bronchospasm [facility] - Attila Yates MD 1 year ago Recurrent epistaxis [facility] - Attila Yates MD Upcoming Appointments NATUROPATH - Recent and Past Visits Recent Visits Date Type Provider Dept 09/20/20 Office Visit Attila Fields MD [facility] 01/20/20 Office Visit Attila Fields MD [facility] Showing recent visits within past 460 [...] Total Score: 0 03/29/19 20 3:00 PM SOCIOLOGY INSTRUCTOR documented as of this encounter Care Teams Coding Support Specialist Relationship Specialty Start Date End Date Attila Fields MD PCP - General Family Medicine 07/09/18 09/21/23 documented as of this encounter
--- OUTSIDE RECORDS SUMMARY | 2024-11-03 11:03 | XMS_ITS | Clinical Summary ---
Author Organization [facility] Medical Office Building A Address [address] [place] [address] Care Team Providers Care Stock Shipper Name Role Phone Attila Fields MD Primary Care Provider Allergies No known active allergies Medications promethazine-DM [...] by mouth 2 (two) times a day 021 2020 Discontinued Active Problems Problem Noted Date [...] oz pur e alcohol) Social Connection and Isolation Panel Answer Date Recorded In a typical week, how many times do you talk on the phone with family, friends, or neighbors? More than three times a week 05/19/2019 How often do you get togethe r with friends or relatives? More than three times a week 05/19/2019 How often do you attend chur ch or christianity services? Never 05/19/2019 Do you belong to any clubs o r organizations such as taoism groups, unions, fraternal or athletic groups, or [...] on file Legal Sex Male 7:55 AM DESIGN COORDINATOR Gender Identity Not on file Sexual Orientation Not on file Occupation Industry Job Start Date Job End Date works on [employer] Not on file Not on file Not [...] 11:59 AM CDT Height 172.7 cm (5' 8) 12/20/2022 11:59 AM CDT Body Mass Index 28.89 12/20/2022 11:59 AM CDT Plan of Treatment Health Maintenance Due Date Last Done Comments Depression Screening 1992 Hepatitis C Screening 1992 DTaP/Tdap/Td Vaccine (1 - Tdap) 07/06/2003 Varicella Vaccines (1 of 2 - 13+ 2-dose series) 2005 Hepatitis B Screening 2010 Regular Well Visit/Exam 18-64 2010 HPV Vaccines (1 - 3-dose SCD M series) 07/06/2019 Covid-19 Vaccine (2 - 2023-2 5 season) 2023 03/31/2021 Influenza Vaccine (#1) 2024 Pneumococcal vaccine <65 Aged Out No longer eligible based on patient's age to complete this topic Medical Devices Implanted Type Area Purchasing Clerk Device Identifier Shelf Expiration Date Model / Serial / Lot Medtronic Sofamor [id number] [id number] Infuse 14mm 23mm Absorbable Sponge Sterile Water Syringe Needle - [id number] Implanted:Qty: 1 on 05/18/2019 by Gabe Elias MD at [facility] N/A: Spine Lumbar Medtronic Inc 11/14/2020 [id number] / / [id number] Plate Buttress [id number] [place] Bone Spine - [id number] Implanted:Qty: 2 on 05/18/2019 by Gabe Elias MD at [facility] N/A: Spine Lumbar Benjamin Spine [id number] / / Cage Spinal [id number] [place] 20d Alif Strl Ltxfre - [id number] Implanted:Qty: 1 on 05/18/2019 by Gabe Elias MD at [facility] N/A: Spine Lumbar Benjamin Spine [id number] 02/22/2024 [id number] / / [id number] Spinal Graft Tech [id number] High View Putty Jar Graft 5cc Bone Demineralized Bone Matrix - [id number] - [id number] Implanted:Qty: 1 on 05/18/2019 by Gabe Elias MD at [facility] N/A: Spine Lumbar Spinal Graft Tech 12/27/2021 [id number] / [id number] / [id number] Screw Bone 6mm 26mm Spine - [id number] Implanted:Qty: 2 on 05/18/2019 by Gabe Elias MD at [facility] N/A: Spine Lumbar Benjamin Spine [id number] / / Cage Spinal [id number] [place] 15d Alif Strl Ltxfre - [id number] Implanted:Qty: 1 on 05/18/2019 by Gabe Elias MD at [facility] N/A: Spine Lumbar Benjamin Spine [id number] 02/03/2024 [id number] / / [id number] Depuy Synthes Spine [id number] Viper Prime 7mm 45mm Polyaxial Extend Tab Spine Screw Bone - [id number] Implanted:Qty: 2 on 05/20/2019 by Gabe Elias MD at [facility] N/A: Spine Lumbar Depuy Synthes Spine [id number] / / Depuy Synthes Spine [id number] Viper Prime Od7 Mm L40 Mm Polyaxial Extend Tab Spine Screw Bone Nonsterile 5.5 Mm Rupesh - [id number] Implanted:Qty: 4 on 05/20/2019 by Gabe Elias MD at [facility] N/A: Spine Lumbar Depuy Synthes Spine [id number] / / Depuy Spine [id number] 5.5mm 1 Inner Spine Screw Set Titanium Nonsterile Viper - [id number] Implanted:Qty: 6 on 05/20/2019 by Gabe Elias MD at [facility] N/A: Spine Lumbar Depuy Spine [id number] / / Depuy Spine [id number] Viper 2 5.5mm 60mm Prebent Rupesh Spinal Titanium Nonsterile - [id number] Implanted:Qty: 2 on 05/20/2019 by Gabe Elias MD at [facility] N/A: Spine Lumbar Depuy Spine [id number] / / Insurance [facility] Advance Directives For more information, please contact: [phone] * Full Code (Latest Code Status on File) Date Activated Date Inactivated Comments 05/18/2019 12:58 PM 05/22/2019 7:15 PM Care Teams Stock Shipper Relationship Specialty Start Date End Date Attila Fields MD PCP - General Family Medicine 12/11/18
--- OUTSIDE RECORDS SUMMARY | 2024-11-03 11:03 | XMS_ITS | Encounter Summary ---
Author Organization [facility] Healthcare Address [address] [place] [address] Care Team Providers Care Electrolog Operator Name Role Phone Attila Fields MD Primary Care Provider [phone] Encounter Details Date Type Department Care Team (Late st Contact Info) Description 04/20/2020 Telephone [facility] [address] [place] [address] Julia Still, RT Social History Tobacco Use [...] any clubs o r organizations such as moravian groups, unions, fraternal or athletic groups, or [...] on file Legal Sex Male 7:55 AM SENIOR ELECTRICAL ESTIMATOR Gender Identity Not on file Sexual Orientation Not on file Occupation Industry Job Start Date Job End Date works on [employer] Not on file Not on file Not on file documented as of this encounter Plan of Treatment Not on file documented as of this encounter Visit Diagnoses Not on filedocumented in this encounter Additional Health Concerns Infection Onset Date Last Indicated Resolved Time COVID: Suspected 12/06/2020 12/06/2020 12/06/2020 3:22 PM CDT COVID: Suspected 03/02/2021 03/02/2021 03/02/2021 10:52 AM SENIOR ELECTRICAL ESTIMATOR COVID: Suspected 03/02/2021 03/02/2021 03/03/2021 11:35 AM SENIOR ELECTRICAL ESTIMATOR Exposure, COVID-19 Comment:Added automatically based on COVID19 lab answers indicating exposure risk 03/14/2021 03/14/2021 03/29/2021 3:[address] COVID: Suspected 03/14/2021 03/14/2021 03/14/2021 2:54 PM SENIOR ELECTRICAL ESTIMATOR COVID: Suspected 10/12/2021 10/12/2021 10/12/2021 3:23 PM CDT COVID: Suspected 01/17/2022 01/17/2022 01/17/2022 11:40 AM CDT COVID: Suspected 10/02/2022 10/02/2022 10/02/2022 2:49 PM CDT COVID: Suspected 12/20/2022 12/20/2022 12/20/2022 12:07 PM CDT documented as of this encounter Care Teams Electrolog Operator Relationship Specialty Start Date End Date Attila Fields MD PCP - General Family Medicine 12/11/18 documented as of this encounter
--- OUTSIDE RECORDS SUMMARY | 2024-11-03 11:03 | XMS_ITS | Encounter Summary ---
Author Organization [facility] Address [address] [facility] [place] [address] Phone Care Team Providers Care Campaign Management Senior Manager Name Role Phone Attila Fields MD Primary Care Provider [phone] Reason for Visit * Reason Comments Medication Refill Encounter Details Date Type Department Care Team (Late st Contact Info) Description 12/15/2020 Refill [facility] - Family Medicine [facility] [address] [place] [id number] Attila Fields MD [address] [place] [address] Medication Refill Social History Tobacco Use Types [...] Total Score: 0 03/29/19 20 3:00 PM PUBLIC RELATIONS ASSISTANT documented as of this encounter Care Teams Campaign Management Senior Manager Relationship Specialty Start Date End Date Attila Fields MD PCP - General Family Medicine 07/09/18 09/21/23 documented as of this encounter
--- OUTSIDE RECORDS SUMMARY | 2024-11-03 11:03 | XMS_ITS | Encounter Summary ---
Author Organization [facility] Healthcare Address [address] [place] [address] Care Team Providers Care Contact Clerk Name Role Phone Attila Fields MD Primary Care Provider [phone] Encounter Details Date Type Department Care Team (Late st Contact Info) Description 12/31/2019 Telephone [facility] [address] [place] [address] Maurilio Palomino, RT Social History Tobacco Use [...] often do you attend chur ch or yarsanism services? Never 05/19/2019 Do you belong to any clubs o r organizations such as rastafari groups, unions, fraternal or athletic groups, or [...] on file Legal Sex Male 7:55 AM [employer] Gender Identity Not on file Sexual Orientation Not on file Occupation Industry Job Start Date Job End Date works on [employer] Not on file Not on file Not on file documented as of this encounter Plan of Treatment Not on file documented as of this encounter Visit Diagnoses Not on filedocumented in this encounter Additional Health Concerns Infection Onset Date Last Indicated Resolved Time COVID: Suspected 12/06/2020 12/06/2020 12/06/2020 3:22 PM CDT COVID: Suspected 03/02/2021 03/02/2021 03/02/2021 10:52 AM [employer] COVID: Suspected 03/02/2021 03/02/2021 03/03/2021 11:35 AM [employer] Exposure, COVID-19 Comment:Added automatically based on COVID19 lab answers indicating exposure risk 03/14/2021 03/14/2021 03/29/2021 3:[address] COVID: Suspected 03/14/2021 03/14/2021 03/14/2021 2:54 PM [employer] COVID: Suspected 10/12/2021 10/12/2021 10/12/2021 3:23 PM CDT COVID: Suspected 01/17/2022 01/17/2022 01/17/2022 11:40 AM CDT COVID: Suspected 10/02/2022 10/02/2022 10/02/2022 2:49 PM CDT COVID: Suspected 12/20/2022 12/20/2022 12/20/2022 12:07 PM CDT documented as of this encounter Care Teams Contact Clerk Relationship Specialty Start Date End Date Attila Fields MD PCP - General Family Medicine 12/11/18 documented as of this encounter
== END 2024-11-03 10:58 | disposition home or self-care (01) ==
PROVIDERS: Emergency Provider Nurse Practitioner Family
DX: J06.9 Acute upper respiratory infection, unspecified (principal)
CPT/HCPCS: 99213; G0463